=== PATIENT | female | born 1995 | race African-American/Black ===

== ENCOUNTER 2024-01-22 07:25 | Outpatient (CLI) | payer OTHER, SELFPAY ==
[2024-01-22 09:13] LABS: Basophils Absolute Auto 0.1 K/mm3 (0.0-0.1); Basophils Percent Auto 0.5 % (0.2-1.2); Eosinophils Absolute Auto 0.2 K/mm3 (0-0.3); Eosinophils Percent Auto 1.6 % (0-4.4); Hematocrit 34.3 % (37.0-47.0); Hemoglobin 11.2 g/dL (12.0-15.0); Immature Granulocyte Absolute 0.12 K/mm3 (0.00-0.031); Immature Granulocyte Percent A 1.2 % (0-0.5); Lymphocytes Absolute Auto 2.33 K/mm3 (0.9-3.2); Lymphocytes Percent Auto 22.7 % (18.3-44.2); Mean Corpuscular HGB Conc 32.7 g/dl (32-36); Mean Corpuscular Hemoglobin 28.8 pg (26-34); Mean Corpuscular Volume 88.2 fl (80-100); Monocytes Absolute Auto 0.8 K/mm3 (0.1-0.6); Monocytes Percent Auto 8.2 % (2.6-8.5); Neutrophils Absolute Auto 6.8 K/mm3 (1.3-6.7); Neutrophils Percent Auto 65.8 % (45.5-73.1); Platelet Count Result 186 k/mm3 (150-375); Red Blood Count 3.89 M/mm3 (4.2-5.4); White Blood Count 10.3 K/mm3 (4.5-10.0)
[2024-01-22 09:20] LABS: Glucose 1 Hour PP 50gm Dose 101 mg/dL
[2024-01-22 10:01] LABS: HIV 1/2 Ab P24 Ag Result Negative (Negative)
[2024-01-23 06:16] LABS: Rapid Plasma Reagin Non-Reactive (NonReactive)
== END 2024-01-22 07:26 | disposition home or self-care (01) ==
PROVIDERS: Visit Provider Obstetrics & Gynecology
DX: Z34.90 Encounter for supervision of normal pregnancy, unspecified, unspecified trimester (principal); Z3A.00 Weeks of gestation of pregnancy not specified
CPT/HCPCS: 36415; 82947; 85025; 86592; 86703; G0432

== ENCOUNTER 2024-02-15 14:52 | Outpatient (CLI) | payer OTHER, SELFPAY ==
--- NOTE | ~2024-02-15 | US_ITS ---
EXAMINATION: US OB follow up DATE: 02/15/2024 15:16 INDICATION: Z34.90 - Encounter for supervision of normal , u... . TECHNIQUE: Real-time ultrasound of the pelvis was performed. COMPARISON: None. FINDINGS: There is a single living fetus in vertex presentation, transverse lie. The placenta is posterior and well distant from the cervix. The cervix is closed, length 4.9 cm. heart rate is 127 bpm. The amniotic fluid index is 12 cm, which is normal (5th to 95th percentile is 8.6 to 24.2 cm). The following biometric data were obtained: Biparietal diameter (BPD): 7.92 cm; head circumference (HC): 29.30 cm; abdominal circumference (AC): 28.83 cm; femur length (FL): 5.97 cm. These measurements are concordant. Estimated weight is 1920 g +/- 288 g, which correlates with the 40.2 percentile when 04/10/2024 is used as estimated date of delivery. As single measurements, these parameters are each equal to the following estimated gestational ages w ith ranges of +/- 2 standard deviations: BPD: 31 weeks 6 days +/- 3 weeks 1 days. HC: 32 weeks 2 days +/- 3 weeks 0 days. AC: 32 weeks 6 days +/- 3 weeks 0 days. FL: 31 weeks 1 days +/- 3 weeks 0 days. estimated gestational age based solely on measurements from this exam is 32 weeks 0 days +/- 2 weeks 2 days. IMPRESSION: Single living fetus in vertex presentation. EFW 1920 g +/- 288 g. EBONY by ultrasound 04/11/2024. Reviewed, dictated and finalized at location K.
== END 2024-02-15 14:53 ==
PROVIDERS: PCP Student in an Organized Health Care Education/Training Program; Visit Provider Obstetrics & Gynecology
DX: O98.513 Other viral diseases complicating pregnancy, third trimester (principal); U07.1 COVID-19; Z3A.32 32 weeks gestation of pregnancy
CPT/HCPCS: 76816

== ENCOUNTER 2024-03-21 13:30 | Outpatient (CLI) | payer OTHER, SELFPAY ==
--- NOTE | ~2024-03-21 | US_ITS ---
EXAMINATION: US OB follow up DATE: 03/21/2024 13:52 INDICATION: Growth check TECHNIQUE: Real-time transabdominal obstetric ultrasound. FINDINGS: Ultrasound dated 02/15/2024 There is a single living fetus in vertex presentation. The placenta is fundal without placenta previ a. cardiac activity and movement is noted with a heart rate of 157 beats per minute. T he amniotic fluid volume is normal. NELDA measures 8.1 cm (normal range is 7.5-24.4 cm). The following biometric data were obtained: BPD: 88mm corresponds to gestational age 35 weeks 5 days. Head circumference: 328mm corresponds to gestational age 37 weeks 1 days. Abdominal circumference: 323mm corresponds to gestational age 36 weeks 2 days. Femur length: 66mm corresponds to gestational age 34 weeks 0 days. Estimated weight: 2750grams +/- 412grams, 21.3%.] IMPRESSION: 1. Single living fetus in presentation with an estimated gestational age of 37 weeks 0 days by init itial ultrasound. Appropriate interval growth. 2. Normal placenta. Reviewed, dictated and finalized at location B. IMPRESSION: 1. Single living fetus in presentation with an estimated gestational age of 3 7 weeks 0 days by inititial ultrasound. Appropriate interval growth. 2. Normal placenta.
== END 2024-03-21 13:31 | disposition home or self-care (01) ==
LOC: GOSHIMG 13:34
PROVIDERS: PCP Student in an Organized Health Care Education/Training Program; Visit Provider Obstetrics & Gynecology
DX: Z34.90 Encounter for supervision of normal pregnancy, unspecified, unspecified trimester (principal)
CPT/HCPCS: 76816

== ENCOUNTER 2024-03-23 07:53 | Observation (INO) | payer OTHER, SELFPAY ==
[2024-03-23 08:15] VITALS: BP 123/73; PULSE 71
--- NOTE | 2024-03-23 08:25 | LDADM ---
This patient, Juhi Davis, was admitted to Labor/Delivery/Recovery 106 on 03/23/24 at 07:53. Plans for labor, pain management and were discussed with patient. Patient/family oriented to hospital policies and general routines including ID bracelet, bed and alarms, visiting hours, pain management, procedures, bathroom and other care routines, personal items, smoking policy, room service/diet and guest tray routines, security routines, and visiting hours. Patient/Family are encouraged to report perceived risks to care and to ask questions if they do not understand what they are told or what they should do. See OBIX for further documentation.
[2024-03-23 08:26] VITALS: BMI 26.6
--- NOTE | 2024-03-23 08:26 | OBADM ---
This patient, Juhi Davis, admitted to the OB room Labor/Delivery/Recovery 106 for observation. Patient/family oriented to hospital policies and general routines including ID bracelet, bed and alarms, visiting hours, pain management, procedures, bathroom and other care routines, personal items, smoking policy, room service/diet, and visiting hours. Patient/Family are encouraged to report perceived risks to care and to ask questions if they do not understand what they are told or what they should do.
[2024-03-23 08:29] LABS: Add Urine Microscopic? YES; Appearance Urine Cloudy (Clear); Bacteria Urine Rare /hpf; Bilirubin Urine Negative (Negative); Blood Urine Negative (Negative); Color Urine Yellow (Yellow); Glucose Urine UA Negative (Negative); Ketones Urine Negative (Negative); Leukocyte Esterase Ur 2+ LEU/UL (Negative); Nitrate Urine Negative (Negative); Non Pathogenic Casts 0-2; Protein Urine Negative (Negative); RBC Urine 0-2 /hpf (0-2); Specific Grav Ur 1.013 (1.001-1.035); Squamous Epithelial Cell Urine Moderate /hpf (Few); Urobilinogen Urine 0.2 mg/dL (<2.0)
[2024-03-23 08:30] VITALS: BP 121/74; PULSE 68
--- NOTE | 2024-03-23 08:42 | PC.NURSE ---
Dr. Raya notified of patient's arrival on unit with complaints of back pain, UA sent. Dr Raya updated on NST, vital signs, and lab results. Okay to discharge.
--- NOTE | 2024-04-08 09:53 | P.PNOB_ITS ---
OB - Triage/Final Diagnosis Visit Information Comments/Additional reasons for admission: I have assessed the risk for this patient, Juhi Davis, and determined that she would benefit from observation care. Evaluation Laboratory results: Laboratory Tests 03/23/24 08:21 Urine Color Yellow Urine Appearance Cloudy H Urine pH 7.0 Ur Specific [place] 1.013 Urine Protein Negative Urine Glucose (UA) Negative Urine Ketones Negative Ur Blood (Man) Negative Urine Nitrate Negative Urine Bilirubin Negative Urine Urobilinogen 0.2 Leukocyte Esterase Rfl 2+ H Urine RBC 0-2 Urine WBC 11-20 H Ur Squamous Epith Cells Moderate Urine Bacteria Rare Urine Casts 0-2 Final Diagnosis (1) False labor: Code(s): O47.9 - False labor, unspecified Status: Acute
== END 2024-03-23 08:52 ==
PROVIDERS: Admitting Provider Obstetrics & Gynecology; Visit Provider Obstetrics & Gynecology
DX: O47.1 False labor at or after 37 completed weeks of gestation (principal); Z3A.37 37 weeks gestation of pregnancy
CPT/HCPCS: 81001; 87086; G0378; G0379

== ENCOUNTER 2024-04-08 06:42 | Inpatient (IN) | payer OTHER, SELFPAY ==
[2024-04-08] VITALS (227 sets, daily range): BP systolic 94–207; BP diastolic 63–169; PULSE 58–171; RESP 13–20; TEMP 36.4–37.7; O2SAT 88–100; BMI 26.6
--- NOTE | 2024-04-08 06:42 | LDADM ---
This patient, Juhi Davis, was admitted to Labor/Delivery/Recovery 104 on 04/08/24 at 06:42. Plans for labor, pain management and were discussed with patient. Patient/family oriented to hospital policies and general routines including ID bracelet, bed and alarms, visiting hours, pain management, procedures, bathroom and other care routines, personal items, smoking policy, room service/diet and guest tray routines, security routines, and visiting hours. Patient/Family are encouraged to report perceived risks to care and to ask questions if they do not understand what they are told or what they should do. See OBIX for further documentation.
[2024-04-08 07:19] LABS: Basophils Percent Auto 0.4 % (0.2-1.2); Eosinophils Absolute Auto 0.1 K/mm3 (0-0.3); Hematocrit 38.3 % (37.0-47.0); Hemoglobin 12.7 g/dL (12.0-15.0); Immature Granulocyte Absolute 0.07 K/mm3 (0.00-0.031); Immature Granulocyte Percent A 0.7 % (0-0.5); Lymphocytes Absolute Auto 2.45 K/mm3 (0.9-3.2); Lymphocytes Percent Auto 26.2 % (18.3-44.2); Mean Corpuscular HGB Conc 33.2 g/dl (32-36); Mean Corpuscular Hemoglobin 27.7 pg (26-34); Mean Corpuscular Volume 83.6 fl (80-100); Mean Platelet Volume 11.1 fl (7.4-10.4); Monocytes Absolute Auto 0.8 K/mm3 (0.1-0.6); Monocytes Percent Auto 8.5 % (2.6-8.5); Neutrophils Absolute Auto 5.9 K/mm3 (1.3-6.7); Neutrophils Percent Auto 63.2 % (45.5-73.1); Platelet Count Result 168 k/mm3 (150-375); Red Blood Count 4.58 M/mm3 (4.2-5.4); Red Cell Distribution Width 13.2 % (11.5-14.5); White Blood Count 9.4 K/mm3 (4.5-10.0)
--- NOTE | 2024-04-08 07:20 | PM.IMHP ---
H&P: HPI History of Present Illness Date/Time: 04/08/24 07:20 Chief Complaint: Induction of labor Narrative: Juhi is a 28yo @ 39.5wks who presents for elective IOL. She reports good movement. She denies VB or LOF. She is having irregular contractions. Her is complicated by: - H/o elective AB x3 - Rubella non-immune Review of Systems Constitutional: Constitutional: Denies chills, Denies fever(s) and Denies headache(s) Eyes: Eyes: Denies change in vision ENT: Denies headache(s) Cardiovascular: Cardiovascular: Denies chest pain and Denies dyspnea Respiratory: Respiratory: Denies dyspnea Genitourinary: Genitourinary: Denies abnormal vaginal bleeding and Denies vaginal discharge Neurologic: Denies headache(s) Psychiatric: Psychiatric: Denies anxiety and Denies depression [facility] Past Medical History Medical History Suppression of menses Surgical History Surgical History H/O colposcopy with cervical biopsy mild dysplasia Family History Family History Mother Hypertension Social History Social History Smoking status: Never smoker Alcohol intake: never Substance use: never Do You Feel Safe in your Home?: Yes Lack of Transportation: No Current Housing: I Have Housing Concerned About Future Housing: No Difficulty Paying Gas/Electric Bills: No Difficulty Paying for Meds: No Currently Unemployed: No Education: Bachelor's Degree Difficulty w/ Childcare or Family Care: No Living arrangements: with family Occupation/Education: occupation Gender identity (if verbalized by the patient): Female Sexual Orientation (if Verbalized by the Patient): Straight or Heterosexual Spiritual care concerns: No Meds Home Medications and Allergies Home Medications Medication Instructions Recorded Confirmed Type vits no.126-ferrous fum 1 tablet PO DAILY 08/30/23 04/08/24 History 28 mg iron-folic acid 800 mcg tablet (Classic ) Allergies Allergy/AdvReac Type Severity Reaction Status Date / Time No Known Allergies Allergy Verified 04/03/24 15:28 Exam Const: General: cooperative, no acute distress and obese Nutritional Appearance: obese Orientation/consciousness: patient oriented x3 Resp: Effort & Inspection: normal respiratory effort Cardio: Rate: regular rate GI: GI Palp: No abdominal tenderness : Other: FHT's: 135's/ mod bill/ + accels/ no decels - cat 1 TOCO: ctxs q2-4min Cervix: 4/80/-1 Membranes: AROM, clear 0735 Presentation: cephalic Skin: General skin exam: normal color Neuro: General: patient oriented x3 Extrem: General: normal to inspection Psych: Appearance: grossly normal Affect: normal affect Attitude: cooperative H&P: Results Labs Labs: Short CBC 04/08/24 Range/Units 07:00 WBC 9.4 (4.5-10.0) K/mm3 Hgb 12.7 (12.0-15.0) g/dL Hct 38.3 (37.0-47.0) % Plt Count 168 (150-375) k/mm3 Assessment and Plan Assessment and plan (1) Encounter for elective induction of labor: Code(s): Z34.90 - Encounter for supervision of normal , unspecified, unspecified trimester Status: Acute Plan - Admit to L&D for elective IOL; risks/benefits discussed in detail - AROM, clear - Low dose pitocin per protocol - Continuous monitoring; currently reassuring - GBS negative - Anesthesia consult PRN pain
[2024-04-08] MEDS: OXYTOCIN 30 UNITS/NS 500 ML 30 UNITS/500 ML BAG IV CONT (07:45)
[2024-04-08] MEDS: LACTATED RINGERS 1,000 ML 125 ML IV CONT ×3 (07:45→15:18)
[2024-04-08 08:11] LABS: HIV 1/2 Ab P24 Ag Result Negative (Negative)
[2024-04-08 08:53] LABS: Rapid Plasma Reagin Non-Reactive (NonReactive)
--- NOTE | 2024-04-08 12:38 | PM.OBPNLAB ---
Pain Control Date/time seen: 04/08/24 12:38 Pain control: epidural Pelvic Exam Dilation (cm): 7 Effacement (%): 90 station: -1 Amniotic membrane status: Ruptured (AROM, clear 0735) Contractions Monitor mode: External Status status: Category l Assessment and Plan Assessment: active labor Plan: continuous present management Comments: - Pitocin briefly started at 2; then held due to frequent contractions; pt geraldo and making adequate change; will recheck in 2 hours or start pit if contractions space out, or no change (will also place IUPC)
--- NOTE | 2024-04-08 16:49 | PM.OBPNLAB ---
Pain Control Date/time seen: 04/08/24 16:49 Pain control: epidural Pelvic Exam Dilation (cm): 8 Effacement (%): 90 station: -1 Amniotic membrane status: Ruptured (AROM, clear 0735) Contractions Monitor mode: Internal Contraction frequency: 1 (-2) Contraction pattern: Regular Status status: Category l Assessment and Plan Pitocin rate (mU/min): 4 Assessment: active labor Plan: continuous present management Comments: - protracted labor course at 7cm but now a good 8, contractions still not adequate, so pitocin started; had tachysystole with decel at 6mU; held and restarted, now on 4mu - will continue to monitor closely, good position, head feels AIDEN/T, caput noted, but good pelvic space
--- NOTE | 2024-04-08 18:48 | WPDANESEPP ---
Anes - Eval Pre Procedure Procedure: Labor epidural Date/Time: 04/08/24 18:48 Surgeon: Bob Preop Diagnosis: Abdominal pain with contractions Pre Op Diagnosis: Induction of Labor Patient Data Age: 28 Gender: F Height: 1.52 m Weight: 62 kg Last Vital Signs Temp 99.6 F 04/08/24 18:20 Pulse 79 04/08/24 18:45 BP 131/84 04/08/24 18:45 Pulse Ox 99 04/08/24 18:48 O2 Del Method Room Air 04/08/24 08:00 Allergies Allergy/AdvReac Type Severity Reaction Status Date / Time No Known Allergies Allergy Verified 04/03/24 15:28 Home Medications Medication Instructions Recorded Confirmed Type vits no.126-ferrous fum 1 tablet PO DAILY 08/30/23 04/08/24 History 28 mg iron-folic acid 800 mcg tablet (Classic ) Laboratory Tests 04/08/24 07:00 WBC 9.4 K/mm3 (4.5-10.0) RBC 4.58 M/mm3 (4.2-5.4) Hgb 12.7 g/dL (12.0-15.0) Hct 38.3 % (37.0-47.0) MCV 83.6 fl (80-100) MCH 27.7 pg (26-34) MCHC 33.2 g/dl (32-36) RDW 13.2 % (11.5-14.5) Plt Count 168 k/mm3 (150-375) MPV 11.1 H fl (7.4-10.4) Immature Gran % (Auto) 0.7 H % (0-0.5) Neut % (Auto) 63.2 % (45.5-73.1) Lymph % (Auto) 26.2 % (18.3-44.2) [place] % (Auto) 8.5 % (2.6-8.5) Eos % (Auto) 1.0 % (0-4.4) Baso % (Auto) 0.4 % (0.2-1.2) Lymph # (Auto) 2.45 K/mm3 (0.9-3.2) [place] # (Auto) 0.8 H K/mm3 (0.1-0.6) Eos # (Auto) 0.1 K/mm3 (0-0.3) Baso # (Auto) 0.0 K/mm3 (0.0-0.1) Abs Immat Gran (auto) 0.07 H K/mm3 (0.00-0.031) Absolute Neuts (auto) 5.9 K/mm3 (1.3-6.7) Absolute Nucleated RBC 0.000 K/mm3 (0.0-0.012) Nucleated RBC % 0.0 % (0.0-0.2) RPR Non-reactive (NonReactive) HIV 1&2 Ab/P24 Ag 4thGn Negative (Negative) Blood Type B Positive Antibody Screen Negative : gestational age HCG: positive Patient hx anesthesia problems: none Family hx anesthesia problems: none Results Review: All pre-operative results and documents have been reviewed as part of the pre-operative evaluation. [facility] Past Medical History Medical History Eczema Encounter for elective induction of labor Suppression of menses Surgical History Surgical History H/O colposcopy with cervical biopsy mild dysplasia Family History Family History Mother Hypertension Social History Social History Smoking status: Never smoker Alcohol intake: never Substance use: never Do You Feel Safe in your Home?: Yes Lack of Transportation: No Lack of Food: Never True Current Housing: I Have Housing Concerned About Future Housing: No Difficulty Paying Gas/Electric Bills: No Difficulty Paying for Meds: No Currently Unemployed: No Education: Bachelor's Degree Difficulty w/ Childcare or Family Care: No Living arrangements: with family Occupation/Education: occupation Gender identity (if verbalized by the patient): Female Sexual Orientation (if Verbalized by the Patient): Straight or Heterosexual Spiritual care concerns: No Exam Day of Procedure 04/08/24 18:48 Patient weight: overweight Airway: Mallampati scale class 1
--- NOTE | 2024-04-08 20:10 | PM.OBPNLAB ---
Pain Control Date/time seen: 04/08/24 20:10 Pain control: epidural Pelvic Exam Dilation (cm): 8 Effacement (%): 90 station: -1 Amniotic membrane status: Ruptured (AROM, clear 0735) Contractions Monitor mode: Internal Contraction frequency: 1 (-2) Contraction pattern: Regular Status status: Category ll Comments: periods of recurrent lates, minimal variability Assessment and Plan Pitocin rate (mU/min): 5 Plan: Comments: - Pt has been unchanged for 6 hours with inadequate contractions (IUPC in place on pitocin) - We have been unable to get above 4mU of pitocin because of tachysystole and late decelerations - significant caput (double since 1630 exam); and cervix now edematous and feels dilated to 6cm rather than 8cm - Pt now meets criteria for arrest of active phase and recommending primary section; risks and benefits discussed in detail - Azithromycin 500mg and Ancef 2g IV once pre-op
--- NOTE | 2024-04-08 20:37 | WPDHPUPDATE1 ---
History and Physical Update Update Date/Time: 04/08/24 20:12 History and Physical has been reviewed, including an updated exam of the patient. There are NO changes in the patient's condition. Risks, benefits, and alternatives have been discussed and questions answered. Patient agrees to proceed with primary section.
[2024-04-08] MEDS: AZITHROMYCIN 500 MG/NS 250 ML 500 MG/250 ML BAG 250 MG IVPB (20:45)
[2024-04-08] MEDS: FAMOTIDINE 20 MG/2 ML VIAL IV PUSH (20:45)
[2024-04-08] MEDS: ONDANSETRON INJ 4 MG/2 ML VIAL IV PUSH (20:45)
[2024-04-08] MEDS: ACETAMINOPHEN 500 MG TABLET 1000 MG PO (20:45)
[2024-04-08] MEDS: ceFAZolin 2 GM/D5W 50 ML 2 GM/50 ML BAG IVPB (20:56)
--- NOTE | 2024-04-08 22:01 | W.PM.OBCSD ---
OB - Delivery Note Procedure Delivery date: 04/08/24 Pre-op diagnosis: Arrest of Dilation and Decelerations Post-op Diagnosis: Same Induction method: Per Pitocin Protocol Delivery augmentation: Rupture of Membranes Delivery monitor: External FHT and Internal Uterine Prior to decision for section, ACOG/SMFM labor guidelines were considered and discussed with the patient and staff. Decision made to proceed with the section.: Yes Procedure Performed: Primary Primary branch: low cervical, transverse Surgeon: Stacey Farris MD Anesthesia type: Epidural Description of Procedure/Findings: Male infant; ROT position, significant caput/molding noted. Short, thin cord. Clear fluid. Normal bilateral fallopian tubes and ovaries. Good hemostasis at end of case. Specimen: Yes (placenta) Estimated Blood Loss: 375 IV Fluids: 1,000 Urine Output: 350 Pathology: Yes (placenta) Complications: No immediate complications Condition: Stable Disposition: Floor Baby Date of : 04/08/24 Time of : 21:17 Gestational Age by Date: 39 (.5) Infant gender: Male Weight (pounds): 6 Weight (ounces): 7 presentation: vertex position: Right Occiput Transverse Placenta delivery description: Expressed Cord Vessel Description: 3 Vessels and Delayed Cord Clamping score one minute: 8 score five minutes: 9 Narrative: Juhi had arrest of active phase and arrested at 8cm dilation for 6 hours. She had inadequate contractions with IUPC in place. Pitocin was started and discontinue multiple times due to recurrent late decelerations. We were unable to get above 4mu without decelerations. She was counseled on all risks and benefits in detail. She was taken to the operating room where epidural was found to be adequate. She was then prepped and draped in the normal sterile fashion. She received Ancef 2g IV and Azithromycin 500mg IV and a time out was performed. A Pfannenstiel incision was made in the skin and carried down to the underlying fascia. The fascia was nicked on either side of the midline and the fascial incision was extended laterally and superiorly using curved Ortiz scissors. The fascia was then elevated using Maribeth clamps and the underlying rectus muscles were dissected off the fascia, superiorly and inferiorly. The rectus muscles were then in the midline and the peritoneum was entered bluntly. Once adequate exposure was obtained, a Mobius self retractor was placed within the abdomen. A bladder flap was created. A low transverse incision was made on the lower uterine segment and clear fluid was noted. The occiput was brought to the hysterotomy and the head was delivered, it was deep in the pelvis with significant molding/caput. The shoulders and body then followed without complications. The had spontaneous cry and the mouth and nose were bulb suctioned. Delayed cord was performed and the cord was then doubly clamped and cut and the was handed off to the awaiting pediatric nurse. A segment of the cord was collected for cord gases. The remaining cord blood was collected for typing. With Pitocin infusing, the placenta delivered with gentle traction on the cord without complications. The uterus was then cleared out of all clots and debris using a clean, moist lap. The hysterotomy was then repaired in a running, interlocking fashion using 0 Vicryl. A second layer imbricating suture was then made using 0 Vicryl. The hysterotomy was found to be hemostatic and good uterine tone was noted. The bilateral adnexa were examined and found to be normal. The pelvis was cleared of all clots and fluid. The Mobius retractor was removed from the abdomen. The peritoneum, muscle, and fascia were examined and found to be hemostatic. The fascia was then repaired using a 0 Vicryl suture in a running fashion. The subcutaneous tissue was then irrigated and made hemostatic with Bovie
[2024-04-09] VITALS (10 sets, daily range): BP systolic 107–136; BP diastolic 55–93; PULSE 83–95; RESP 12–18; TEMP 36.6–37.6; O2SAT 95–100
--- NOTE | 2024-04-09 00:19 | OBPPTRN ---
Patient transferred to post room #287 via stretcher @ 0011. Support person present. Oriented to unit, room, information board, rooming in, admission packet and security measures. Patient verbalizes understanding.
[2024-04-09] MEDS: ACETAMINOPHEN 325 MG TABLET 650 MG PO ×4 (04:02→21:28)
[2024-04-09] MEDS: KETOROLAC 15 MG/ML VIAL (*BKC) IV PUSH ×4 (04:03→21:28)
[2024-04-09 05:21] LABS: Basophils Absolute Auto 0.1 K/mm3 (0.0-0.1); Basophils Percent Auto 0.3 % (0.2-1.2); Eosinophils Percent Auto 0.1 % (0-4.4); Hematocrit 30.7 % (37.0-47.0); Hemoglobin 10.3 g/dL (12.0-15.0); Immature Granulocyte Percent A 0.6 % (0-0.5); Lymphocytes Absolute Auto 1.44 K/mm3 (0.9-3.2); Lymphocytes Percent Auto 8.3 % (18.3-44.2); Mean Corpuscular HGB Conc 33.6 g/dl (32-36); Mean Corpuscular Hemoglobin 28.1 pg (26-34); Mean Corpuscular Volume 83.7 fl (80-100); Mean Platelet Volume 11.4 fl (7.4-10.4); Monocytes Absolute Auto 0.9 K/mm3 (0.1-0.6); Neutrophils Absolute Auto 14.8 K/mm3 (1.3-6.7); Neutrophils Percent Auto 85.7 % (45.5-73.1); Platelet Count Result 137 k/mm3 (150-375); Red Blood Count 3.67 M/mm3 (4.2-5.4); Red Cell Distribution Width 13.4 % (11.5-14.5); White Blood Count 17.3 K/mm3 (4.5-10.0)
--- NOTE | 2024-04-09 07:15 | PM.OBPNVD ---
OB - PN: Subj Subjective Date/time seen: 04/09/24 07:15 Narrative: POD#1 Juhi reports doing well today. Her bleeding is literacy tutor. Her pain is controlled. She is tolerating regular diet and has passed gas. Card catheter is in place. She has not ambulated yet. She denies any issues with her incision. She is breast feeding. She would like her son circumcised. OB - PN: Obj Data Labs 04/09/24 04:19 Labs: Laboratory Results - last 24 hr 04/08/24 04/09/24 07:00 04:19 WBC 9.4 17.3 H RBC 4.58 3.67 L Hgb 12.7 10.3 L Hct 38.3 30.7 L MCV 83.6 83.7 MCH 27.7 28.1 MCHC 33.2 33.6 RDW 13.2 13.4 Plt Count 168 137 L MPV 11.1 H 11.4 H Immature Gran % (Auto) 0.7 H 0.6 H Neut % (Auto) 63.2 85.7 H Lymph % (Auto) 26.2 8.3 L [place] % (Auto) 8.5 5.0 Eos % (Auto) 1.0 0.1 Baso % (Auto) 0.4 0.3 Lymph # (Auto) 2.45 1.44 [place] # (Auto) 0.8 H 0.9 H Eos # (Auto) 0.1 0.0 Baso # (Auto) 0.0 0.1 Abs Immat Gran (auto) 0.07 H 0.10 H Absolute Neuts (auto) 5.9 14.8 H Absolute Nucleated RBC 0.000 0.000 Nucleated RBC % 0.0 0.0 RPR Non-reactive HIV 1&2 Ab/P24 Ag 4thGn Negative Blood Type B Positive Antibody Screen Negative OB - PN A/P Assessment and Plan (1) S/P section: Code(s): Z98.891 - History of uterine scar from previous surgery Status: Acute (2) Arrested active phase of labor: Code(s): O62.1 - Secondary uterine inertia Status: Acute Plan day: 1 Plan: routine care Comments: - PO pain meds - Regular diet - Card to be removed - Ambulation and hydration encouraged - Continue putting baby to breast q2-3hr - Plan to circumcision tomorrow Time Spent With Patient Time: Total time spent is greater than 50% in coordination of care (as documented) at patient's floor/unit and/or counseling patient: Review of Systems Constitutional: Constitutional: Denies chills, Denies fever(s) and Denies headache(s) Eyes: Eyes: Denies change in vision ENT: Denies dizziness and Denies headache(s) Cardiovascular: Cardiovascular: Denies chest pain, Denies palpitations and Denies dyspnea Respiratory: Respiratory: Denies cough and Denies dyspnea Gastrointestinal: Gastrointestinal: Denies nausea and Denies vomiting Genitourinary: Comments: normal bleeding Neurologic: Denies dizziness and Denies headache(s) Endocrine: Endocrine: Denies palpitations Exam Const: General: cooperative, healthy appearing, comfortable and no acute distress Orientation/consciousness: patient oriented x3 Resp: Effort & Inspection: normal respiratory effort Auscultation: clear to auscultation bilaterally Cardio: Rate: regular rate GI: Inspection: non-distended and incision (covered with clean dressing) GI Palp: Yes abdominal tenderness (appropriate) and Yes Soft to palpation Auscultation: normal bowel sounds : Other: fundus firm, minimal blood on pad Urinary Catheter: Urinary Catheter: patent and draining and urine clear Skin: General skin exam: normal color Neuro: General: patient oriented x3 Extrem: General: normal to inspection Psych: Appearance: grossly normal Affect: normal affect Attitude: cooperative
[2024-04-09] MEDS: MULTIVIT/MIN/PREN/FOL AC/IRON TABLET 1 TAB PO (08:48)
[2024-04-09] MEDS: DOCUSATE SODIUM 100 MG CAPSULE PO ×2 (08:48→17:43)
[2024-04-09] MEDS: SIMETHICONE 80 MG TAB.CHEW PO ×3 (08:48→17:43)
--- NOTE | 2024-04-09 09:45 | PC.NURSE ---
Introductions were made, then consulted with patient to assess needs related to . Mother led the conversation with her?plans to feed?her and the?experience so far. Encouraged understanding of the benefits of skin to skin (demonstrating unwrapping infant and placing upright on her chest), stimulating with massage touch, changing positions to encourage wakefulness, how to watch for early feeding cues, responsive feeding, feeding on demand (aiming for 8-12 times in 24 hours, about every 2-3 hours), milk production, building/maintaining a milk supply, duration of feeding, signs of adequate intake/output and how to record on the feeding sheet. Mother works well with her infant. Reviewed positioning and ear, shoulder, hip alignment, supporting the breast to facilitate a deep latch, asymmetrical latch (off-center), leading with the chin with a big, open, wide gape and body close to mother. latched optimally to the right breast in football position. Education given to the mother of how to visualize the suckling (with good rocking jaw motion), swallows (dropping of the lower jaw) and how to listen for drinking at the breast (the ka sound). Infant was able to maintain latch without pain to mother protecting the nipple with optimal positioning and latching. Reviewed comfort measures of healing with a warm, wet washcloth to rinse breast, then leave open to air-dry, good handwashing when or touching the breast/nipples to prevent infection. Mother voiced understanding of skin to skin, stimulating with massage touch, responsive feedings, hand expressed colostrum, talking to infant to encourage if it has been 2 -2.5 hours since the start of the last , to call if infant does not latch, or if there is discomfort with . Resources used for education were facilitated with the [visual educational handouts/ tool/mom and baby guide], Inpatient/outpatient resources provided with business card, feeding sheet, name written on the communication board, and the mom/baby guide. Parents voiced understanding of information, demonstrated learning and will call if there is a request for assistance. Reported to the Primary RN.
--- NOTE | 2024-04-09 10:03 | WPDANLDPN2 ---
Anes-Prog Note L&D Date/Time: 04/09/24 10:03 Comfortable throughout: section Neuraxial method: spinal Epidural/Spinal procedure site: clean & non-tender Neuro status: Neuro function grossly intact. Cardiovascular status: normal Respiratory status: normal Airway patency: baseline Mental status: baseline Post-Op hydration status: normal Vital Signs: Last Vital Signs Temp 36.6 C 04/09/24 07:45 Pulse 85 04/09/24 07:45 Resp 18 04/09/24 07:45 BP 107/61 04/09/24 07:45 Pulse Ox 100 04/09/24 07:45 O2 Del Method Room Air 04/09/24 07:00 Pain score (VAS): 1 I/O: Intake & Output 04/08/24 04/09/24 04/09/24 23:59 07:59 15:59 Intake Total 1000 600 Output Total [id number] Patient feedback: Patient satisfied with anesthetic care.
--- NOTE | 2024-04-09 10:03 | WPDANLDNPN2 ---
Anes-Prog Note L&D-Neuraxial Date/Time: 04/09/24 10:03 Neuraxial medications: intrathecal PF morphine Opiod-related complaints: none Patient feedback: Patient satisfied with post-operative pain management.
[2024-04-09] MEDS: HYDROcodone/acetaminophen (*CRX) 10-325 MG TABLET 1 TAB PO (12:00)
[2024-04-10] MEDS: IBUPROFEN 600 MG TABLET PO ×2 (03:30→09:31)
[2024-04-10] MEDS: ACETAMINOPHEN 325 MG TABLET 650 MG PO ×2 (03:30→09:31)
--- NOTE | 2024-04-10 07:15 | P.DS_ITS ---
DS: Admitting Diagnosis Discharge Date 04/10/24 Admitting Diagnosis Induction of labor DS: Discharge Diagnosis Discharge Diagnosis (1) S/P section: Code(s): Z98.891 - History of uterine scar from previous surgery Status: Acute (2) Arrested active phase of labor: Code(s): O62.1 - Secondary uterine inertia Status: Acute OB - DS: Summary OB Procedures : Ultrasound OB Procedures Intrapartum: low cervical, transverse OB Procedures: : None Peripartum Data Infant Delivery Method: Section Procedures: Procedures Operation Date: 04/08/24 20:10 Actual Procedure Side Surgeon p Section Not Applicable Stacey Farris MD [place] 1: Gender: Male Disposition of : home Status at Discharge Functional status at discharge: independent ambulation Overall status at discharge: patient is back to baseline Time Spent with Patient Time attestation: Total time spent providing and/or coordinating discharge services: Exam Const: General: cooperative, healthy appearing, comfortable and no acute distress Orientation/consciousness: patient oriented x3 Resp: Effort & Inspection: normal respiratory effort Auscultation: clear to auscultation bilaterally Cardio: Rate: regular rate GI: Inspection: non-distended GI Palp: No abdominal tenderness and Yes Soft to palpation Auscultation: normal bowel sounds : Other: fundus firm Skin: General skin exam: normal color Neuro: General: patient oriented x3 Extrem: General: normal to inspection Psych: Appearance: grossly normal Affect: normal affect Attitude: cooperative DS: Data Data Completed and Pending Pending studies at discharge: Pending at discharge 04/08/24 22:19 Surgical [PTH] Routine Discharge Plan Discharge Attending physician on discharge: Stacey Farris Discharging Clinician: Stacey Farris Anticipated Discharge Date/Time: 04/11/24 08:00 Patient Disposition: Home, Self-Care Activity: may shower and pelvic rest Diet: regular Discharge Instructions: No lifting over 15 pounds. Remove dressing on 04/14/24. Patient Instructions: (DC) Stand Alone Forms: General Discharge Information Follow-up/Referrals: Stacey Farris MD [Physician] - 4 Weeks Discharge Medications: New acetaminophen 325 mg Tablet 650 mg PO Q6H Qty: 60 0RF docusate sodium 100 mg Capsule 100 mg PO BID Qty: 90 0RF hydrocodone-acetaminophen 5-325 mg Tablet 1 tablet PO Q3H PRN (Reason: Breakthrough Pain Rated 4-6) Qty: 20 0RF ibuprofen 600 mg Tablet 600 mg PO Q6H Qty: 40 0RF Continued Classic 28 mg iron- 800 mcg tablet 1 tablet PO DAILY Date of admission: 04/08/24 06:42 Primary Care Provider: UNKNOWN,DOCTOR Admitting Provider: Stacey Farris Attending physician on admission: Stacey Farris Condition: Stable
[2024-04-10 07:25] VITALS: BP 123/78; PULSE 82; RESP 16; TEMP 37.2; O2SAT 100
[2024-04-10] MEDS: SIMETHICONE 80 MG TAB.CHEW PO (08:06)
[2024-04-10] MEDS: MULTIVIT/MIN/PREN/FOL AC/IRON TABLET 1 TAB PO (09:31)
[2024-04-10] MEDS: DOCUSATE SODIUM 100 MG CAPSULE PO (09:31)
[2024-04-10] MEDS: MEASLES,MUMPS,RUBELLA VACCINE 0.5 ML VIAL SUB-Q (09:31)
[2024-04-11 10:09] VITALS: BP 124/85; PULSE 88; RESP 16; TEMP 36.8; O2SAT 99
== END 2024-04-10 12:40 | disposition home or self-care (01) | DRG 788 ==
LOC: ANHLDR 21:33 → ANHOB2 04-09 00:36
PROVIDERS: Admitting Provider Obstetrics & Gynecology; Visit Provider Obstetrics & Gynecology
PROC: 10D00Z1 Extraction of Products of Conception, Low, Open Approach (ICD-10-PCS; CPT 59514; principal; 2024-04-08 20:10)
DX: O36.8330 Maternal care for abnormalities of the fetal heart rate or rhythm, third trimester, not applicable or unspecified (principal); Z37.0 Single live birth; Z3A.39 39 weeks gestation of pregnancy; O62.1 Secondary uterine inertia
CPT/HCPCS: 36415; 85025; 86592; 86703; 86850; 86900; 86901; 88307; 90710; A9270; G0432; J0456; J0690; J1885; J2004; J2274; J2405; J2590; J2795; J7120